=== PATIENT | female | born 1965 | race Caucasian/White ===

== ENCOUNTER 2022-02-25 11:53 | Day surgery (SDC) | payer BC, SELFPAY ==
[2022-02-25] MEDS: Tropicam./Phenyleph. (1/2.5%) 5 ML BTL OD ×3 (13:05→13:16)
[2022-02-25 13:06] VITALS: BP 125/76; PULSE 69; RESP 16; TEMP 37.1; O2SAT 98
--- NOTE | 2022-02-25 13:12 | W.ANESPRE ---
General Info Date of Service Date Performed: 02/25/22 Height: 5 ft 3 in Weight: 84.8 kg Body Mass Index (BMI): 33.1 Surgical Procedure: Operation Date: 02/25/22 13:40 Proposed Procedure Side Surgeon p Cataract Extraction with IOL Implant Right Rosendo Foster MD Meds Allergies and Home Medications Allergies Allergy/AdvReac Type Severity Reaction Status Date / Time cat dander Allergy Intermediate Verified 02/25/22 13:00 [place] Juice Allergy Uncoded 02/25/22 13:27 Strawerries Allergy Uncoded 02/25/22 13:27 Home Medication Medication Instructions Recorded epinephrine 0.3 mg/0.3 mL 0.3 mg IM Q5-15M PRN 02/22/22 injection, auto-injector furosemide 40 mg tablet 40 mg PO DAILY 02/22/22 insulin glargine U-300 conc 300 50 unit subcut BID 02/22/22 unit/mL (3 mL) subcutaneous pen (Toujeo Max U-300 SoloStar) insulin lispro 200 unit/mL (3 mL) See Rx Instructions .Route .COMPLEX 02/22/22 subcutaneous pen omeprazole 40 mg capsule,delayed 40 mg PO DAILY PRN 02/22/22 release Current Visit Medications: Current Medications Generic Name Dose Route Start Last Admin Trade Name Freq PRN Reason Stop Dose Admin Acetaminophen 1,000 mg 02/25/22 06:00 Acetaminophen 500 Mg Tab PO Q4H PRN PRN Miscellaneous Medication 0 ml 02/25/22 06:00 Prednisolone 1%, Moxifloxacin 0.5%, Nepafenac 0.1% 5ml Btl OD DIRECTED [facility] Miscellaneous Medication 0 ml 02/25/22 06:00 02/25/22 13:05 Tropicam./Phenyleph. (1/2.5%) 5 Ml Btl OD 1 drp DIRECTED [facility] Administration Tetracaine HCl 0 ml 02/25/22 06:00 Tetracaine 0.5% 4 Ml Btl OD DIRECTED [facility] Medical History Medical History Allergic rhinitis Anemia Cataract Chest pain Pt. 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 states this is no longer true Tympanosclerosis Medical History Comments:: titanium plate neck/throat from 2003 fall/trauma; broken neck Surgical History Surgical History History of bilateral tubal ligation History of colonoscopy History of hysterectomy History of laparoscopy History of surgery throat gadiver 2003 History of surgery Titanium plate in throat/neck Hx laparoscopic cholecystectomy Previous section Tobacco Smoking/Tobacco Use Status: Never Alcohol Alcohol Intake: never Substance Use Substance use: Never Substance use type: does not use Vital Signs and Lab Results Vital Signs Most Recent Vital Signs in EMR: Most Recent Vital Signs Temp Pulse Resp BP Pulse Ox 37.1 C 69 16 125/76 98 02/25/22 13:06 02/25/22 13:06 02/25/22 13:06 02/25/22 13:06 02/25/22 13:06 Lab Results Blood Type / Crossmatch: No Data to Display Complete Blood Count: No Data to Display Complete Metabolic Panel: No Data to Display Liver Function Panel: No Data to Display Coagulation Panel: No Data to Display Cardiac Panel: No Data to Display Arterial Blood Gas: No Data to Display Venous Blood Gas: No Data to Display Pancreas Panel: No Data to Display Thyroid Panel: No Data to Display Infectious Disease: No Data to Display Blood Cultures: No Data to Display Toxicology Panel: No Data to Display Anesthesia Assessment and Plan Anesthesia History Personal History: Delayed Emergence Family History: No Family History of Anesthesia Complications Exercise Tolerance Exercise Tolerance: Metabolic Equivalents>4 Pertinent Negatives Pertinent Negatives: No Major Cardiovascular Symptoms or Complaints, No Major Pulmonary Symptoms or Complaints and Other (GERD well controlled) Cardiac & Pulmonary Exam Cardiac Exam: Normal S1/S2 Heart Sounds Pulmonary Exam: Clear Bilateral Breath Sounds Implantable Cardiac Device Does patient have a Pacemaker or an ICD?: No Airway Exam Known Difficult Airway: No Mallampati Class: 3 Mouth Opening: Narrow (< 3cm) Thyromental Distance: Greater than 3 cm Neck Range of Motion: Full ROM Neck Circumference: Thick Teeth Condition: Normal Dentition ASA Classification ASA Score: ASA 3 Emergency Case?: No NPO Status NPO Status: NPO Clears >2 hours, Solids >8 hours Anesthesia Plan Resuscitation Status: Full Code Anesthesia Technique: MAC Anesthesia Airway Planned: Natural Airway Monitors Used: Standard Monitors
[2022-02-25 13:28] VITALS: BMI 33.1
[2022-02-25] MEDS: Balanced Salt Soln.-PLUS 500 ML BAG (13:52)
[2022-02-25] MEDS: Tetracaine 0.5% 4 ML BTL OD (13:52)
[2022-02-25] MEDS: Lidocaine 1% Pres-Free 5 ML VIAL (13:53)
[2022-02-25] MEDS: Lidocaine 2% Jelly 6 ML SYR (13:53)
[2022-02-25] MEDS: Duovisc Viscoelastic System EACH 1 EACH (13:55)
[2022-02-25] MEDS: Povidone-Iodine Ophth 30 ML BTL (13:55)
[2022-02-25 14:26] VITALS: BP 120/64; PULSE 69; RESP 16; TEMP 36.4; O2SAT 98
--- NOTE | 2022-02-25 14:27 | W.PM.DSUDISC ---
Discharge Plan Disposition Patient Disposition: HOME Condition: Good Discharge Details Attending Provider: Rosendo Foster Primary Care Provider: None,None Home Meds and New Rx's Prescriptions: No Action furosemide 40 mg Tablet 40 mg PO DAILY omeprazole 40 mg Capsule,Delayed Release(Dr/Ec) 40 mg PO DAILY PRN epinephrine 0.3 mg/0.3 mL Auto-Injector 0.3 mg IM Q5-15M PRN Rx Instructions: do not exceed 3 doses per episode insulin lispro 200 unit/mL (3 mL) Insulin Pen See Rx Instructions .ROUTE .COMPLEX Rx Instructions: sliding scale PRN Toujeo Max U-300 SoloStar 300 unit/mL (3 mL) Insulin Pen 50 unit SUBCUT BID Discharge Instructions Stand Alone Forms: Post-op Topical Cataract, Michael Garcia (DSU) Discharge Orders Discharge Orders: Discharge Order (Routine); Ordered 02/25/22 Ordered By: Rosendo Foster DS: Diagnosis Discharge Diagnosis (1) Nuclear sclerotic cataract of right eye: Status: Resolved (2) Posterior subcapsular age-related cataract, right eye: Status: Resolved
--- NOTE | 2022-02-25 14:28 | W.PM.OP ---
Date of service: 02/25/22 Time of Service: 14:28 Operative Note Operative Note DATE OF PROCEDURE: 02/25/22 PRE-OP DIAGNOSIS: Nuclear/posterior subcapsular cataract, right eye Poorly dilating pupil, right eye POST-OP DIAGNOSIS: same PROCEDURE: Cataract extraction using phacoemulsification with intraocular lens implant, right eye Pupillary expansion using pupil expansion device SURGEON: Rosendo Foster ANESTHESIA TYPE: Local By Surgeon and MAC Refer to Anesthesia Record ESTIMATED BLOOD LOSS: 0 PATHOLOGY: none sent COMPLICATIONS: None Patient was transported to: same day Patient's condition: stable Implants: Alexander & Alexander/MYKE Tecnis [id number] Indications: Progressive visual loss due to cataract, right eye Procedure Description: CATARACT SURGERY OPERATIVE REPORT PREOPERATIVE DIAGNOSIS: 1. Nuclear/posterior subcapsular cataract, right eye 2. Poorly dilating pupil, right eye POSTOPERATIVE DIAGNOSIS: Same OPERATION: 1. Cataract extraction using phacoemulsification with posterior chamber intraocular lens implant, right eye. 2. Pupillary expansion and iris stabilization using pupil expansion device. IOL Power: + 15.0 diopters IOL Serial Number: [id number] Optic Diameter: 6.0mm Haptic/Overall Diameter: 13.0mm PHACO INFO: Pietro [employer] Vision System with OZil and Active Fluidics Cumulative Dispersed Energy (CDE): 17.41 seconds SURGEON: Rosendo Foster MD, FARTUN ANESTHESIA: Monitored Anesthesia Care (MAC), with local sub-tenon's anesthetic infiltration COMPLICATIONS: None SPECIMENS: None INDICATIONS FOR PROCEDURE: The patient is a 57-year-old lady with history of diminished visual acuity in her right eye secondary to the development of nuclear/posterior subcapsular cataract. The option of cataract surgery was offered to the patient and she felt she was symptomatic enough that she wished to proceed. PROCEDURE: The correct surgical eye was identified and marked as the right eye and the pupil was dilated in the preoperative area using mydriatics and cycloplegics. The dilated pupil size was 4.0 mm. The patient elected to proceed without oral sedation. The patient was brought to the operating room where cardiopulmonary monitoring was instituted and surgical time-out was performed, confirming the correct operative eye and IOL power. Topical anesthesia was administered and ophthalmic povidone-iodine 5% was instilled into the conjunctival fornices. Lidocaine gel was applied to the cornea and the katelynn-ocular area was prepped with Betadine 10% solution and draped in the usual sterile fashion for intraocular surgery, including an aperture drape. A Tegaderm transparent film dressing was cut in half and used to cover the lashes and lid margins. Care was taken to sequester the lashes and lid margins under the Tegaderm dressing. A lid speculum was placed between the lids of the operative eye and the Pietro [employer] operating microscope was maneuvered into position. Daisy scissors were then used to make a conjunctival buttonhole approximately 6mm posterior to the limbus in the inferonasal quadrant. Blunt dissection was carried out to expose bare sclera, and a blunt-tipped sub-tenon?s anesthesia cannula was introduced and passed posteriorly along the globe where non-preserved plain lidocaine was injected into posterior sub-Tenon?s space. A sideport knife was used to make a paracentesis port inferotemporally. Intraocular phenylephrine/lidocaine was injected into the anterior chamber. The anterior chamber was filled with viscoelastic. A keratome knife was used to construct a 2-plane near-clear corneal tunnel extending 2.0mm into clear cornea superiortemporally. A 6.25 mm pupil expansion device was then inserted into the pupillary space and engaged with the Kuglen hook. A flap was raised on the anterior capsule and capsulorhexis forceps were used to complete a continuous curvilinear capsulorhexis of 5.0 mm. Balanced salt solution was then used to perform cortical cleaving hydrodissection and nuclear hydrodelineation until the lens could be freely rotated within the capsular bag. The lens nucleus was then disassembled and removed within the capsular bag and iris plane using phacoemulsification. Residual cortical material was removed using the I/A handpiece. The posterior capsule was carefully polished to remove as much residual lens epithelial cells as safely possible. The capsular bag was then inflated and the anterior chamber deepened with viscoelastic. The lens implant described above was inserted into the capsular bag using the MYKE [place] Injector. A Kuglen hook was used to dial the IOL into position. The pupil expansion device was then removed and the reverse order of its insertion. Residual viscoelastic was then removed first from posterior to the IOL, then from the anterior chamber using the I/A handpiece. The lens implant was noted to center nicely within the capsular bag. The incisions were stromally hydrated, and the anterior chamber was reformed using BSS. Then 0.5cc of moxifloxacin 1.0mg/ml were injected into the capsular bag and anterior chamber. The incisions were checked with a Weck spear and found to be secure. Several drops of ophthalmic povidone-iodine 5% were then applied to the eye followed by two drops of Imprimis combination prednisolone/moxifloxacin/nepafenac solution. The drapes were removed and a clear plastic protective eye shield was placed over the eye. The patient was then returned to Same Day Surgery in stable condition.
--- NOTE | 2022-02-25 14:45 | W.ANESPOSTOP ---
Postoperative Evaluation Date, Time and Location Date Performed: 02/25/22 Time Performed: 14:30 Patient Location: Day Surgery Unit Vital Signs Most Recent Imported Vital Signs: Most Recent Vital Signs Temp Pulse Resp BP Pulse Ox 36.4 C L 69 16 120/64 98 02/25/22 14:26 02/25/22 14:02/25/22 14:02/25/22 14:02/25/22 14:26 Pain Score Most Recent Pain Score: Most Recent Pain Score Pain Level 0 02/25/22 14:26 Assessment Mental Status: Awake (Alert & Oriented to Patient Baseline) Airway and Respiratory Function: Patent airway with normal (patient baseline) respiratory exam Cardiovascular Function: Hemodynamically Stable Hydration Status: Adequately Hydrated Nausea & Vomiting: No Nausea or Vomiting Pain: Pt. Denies Any Pain Peripheral Nerve Block: Patient did not receive a nerve block
== END 2022-02-25 15:00 | disposition home or self-care (01) ==
LOC: SUR 12:00
PROVIDERS: Visit Provider Ophthalmology
PROC: (CPT 66982; principal; 2022-02-25 13:30)
DX: H25.041 Posterior subcapsular polar age-related cataract, right eye (principal); E11.42 Type 2 diabetes mellitus with diabetic polyneuropathy; Z79.4 Long term (current) use of insulin; H57.03 Miosis
CPT/HCPCS: 66982; V2632

== ENCOUNTER 2022-03-11 06:10 | Day surgery (SDC) | payer BC, SELFPAY ==
[2022-03-11 06:25] VITALS: BP 115/64; PULSE 73; RESP 18; TEMP 36.6; O2SAT 97
[2022-03-11] MEDS: Tropicam./Phenyleph. (1/2.5%) 5 ML BTL OS ×3 (06:42→06:52)
--- NOTE | 2022-03-11 07:05 | ANES.PREOP_ITS ---
General Info Date of Service Date Performed: 03/11/22 Height: 5 ft 3 in Weight: 84.4 kg Body Mass Index (BMI): 32.9 Surgical Procedure: Operation Date: 03/11/22 07:40 Proposed Procedure Side Surgeon p Cataract Extraction with IOL Implant Left Rosendo Foster MD Meds Allergies and Home Medications Allergies Allergy/AdvReac Type Severity Reaction Status Date / Time cat dander Allergy Intermediate Verified 03/11/22 06:29 [place] Juice Allergy Uncoded 03/11/22 06:29 Strawerries Allergy Uncoded 03/11/22 06:29 Home Medication Medication Instructions Recorded epinephrine 0.3 mg/0.3 mL 0.3 mg IM Q5-15M PRN 02/22/22 injection, auto-injector furosemide 40 mg tablet 40 mg PO DAILY 02/22/22 insulin glargine U-300 conc 300 50 unit subcut BID 02/22/22 unit/mL (3 mL) subcutaneous pen (Toujeo Max U-300 SoloStar) insulin lispro 200 unit/mL (3 mL) See Rx Instructions .Route .COMPLEX 02/22/22 subcutaneous pen omeprazole 40 mg capsule,delayed 40 mg PO DAILY PRN 02/22/22 release insulin lispro 100 unit/mL subcut DAILY 03/11/22 subcutaneous pen Current Visit Medications: Current Medications Generic Name Dose Route Start Last Admin Trade Name Freq PRN Reason Stop Dose Admin Acetaminophen 1,000 mg 03/11/22 06:00 Acetaminophen 500 Mg Tab PO Q4H PRN PRN Miscellaneous Medication 0 ml 03/11/22 06:00 Prednisolone 1%, Moxifloxacin 0.5%, Nepafenac 0.1% 5ml Btl OS DIRECTED [facility] Miscellaneous Medication 0 ml 03/11/22 06:00 03/11/22 06:52 Tropicam./Phenyleph. (1/2.5%) 5 Ml Btl OS 1 drp DIRECTED [facility] Administration Tetracaine HCl 0 ml 03/11/22 06:00 Tetracaine 0.5% 4 Ml Btl OS DIRECTED [facility] PFSH Active Problems Active Problems: Problem Status Onset Code Posterior subcapsular age-related cataract of left eye H25.042 Nuclear sclerotic cataract of left eye H25.12 Posterior subcapsular age-related cataract, right eye H25.041 Nuclear sclerotic cataract of right eye H25.11 Medical History Medical History Allergic rhinitis Anemia Cataract Chest pain Pt. 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 states this is no longer true Tympanosclerosis Medical History Comments:: titanium plate neck/throat from 2003 fall/trauma; broken neck Surgical History Surgical History History of bilateral tubal ligation History of colonoscopy History of hysterectomy History of laparoscopy History of surgery throat gadiver 2003 History of surgery Titanium plate in throat/neck Hx laparoscopic cholecystectomy Previous section Tobacco Smoking/Tobacco Use Status: Never Alcohol Alcohol Intake: never Substance Use Substance use: Never Substance use type: does not use Vital Signs and Lab Results Vital Signs Most Recent Vital Signs in EMR: Most Recent Vital Signs Temp Pulse Resp BP Pulse Ox 36.6 C 73 18 115/64 97 03/11/22 06:25 03/11/22 06:25 03/11/22 06:25 03/11/22 06:25 03/11/22 06:25 Point of Care Results Point of Care Results: Finger Stick Blood Glucose 174 03/11/22 06:50 Lab Results Blood Type / Crossmatch: No Data to Display Complete Blood Count: No Data to Display Complete Metabolic Panel: No Data to Display Liver Function Panel: No Data to Display Coagulation Panel: No Data to Display Cardiac Panel: No Data to Display Arterial Blood Gas: No Data to Display Venous Blood Gas: No Data to Display Pancreas Panel: No Data to Display Thyroid Panel: No Data to Display Infectious Disease: No Data to Display Blood Cultures: No Data to Display Toxicology Panel: No Data to Display Anesthesia Assessment and Plan Anesthesia History Personal History: Delayed Emergence Family History: No Family History of Anesthesia Complications Exercise Tolerance Exercise Tolerance: Metabolic Equivalents>4 Pertinent Negatives Pertinent Negatives: No Symptoms of GERD Cardiac & Pulmonary Exam Cardiac Exam: Normal S1/S2 Heart Sounds Pulmonary Exam: Clear Bilateral Breath Sounds Implantable Cardiac Device Does patient have a Pacemaker or an ICD?: No Airway Exam Known Difficult Airway: No Mallampati Class: 3 Mouth Opening: Narrow (< 3cm) Thyromental Distance: Greater than 3 cm Neck Range of Motion: Full ROM Neck Circumference: Thick Teeth Condition: Normal Dentition ASA Classification ASA Score: ASA 3 Emergency Case?: No NPO Status NPO Status: NPO Clears >2 hours, Solids >8 hours Anesthesia Plan Resuscitation Status: Full Code Anesthesia Technique: MAC Anesthesia Airway Planned: Natural Airway Monitors Used: Standard Monitors
[2022-03-11 07:08] VITALS: BMI 32.9
[2022-03-11] MEDS: Lidocaine 2% Jelly 6 ML SYR (07:32)
[2022-03-11] MEDS: Balanced Salt Soln.-PLUS 500 ML BAG (07:32)
[2022-03-11] MEDS: Duovisc Viscoelastic System EACH 1 EACH (07:34)
[2022-03-11] MEDS: Povidone-Iodine Ophth 30 ML BTL (07:34)
[2022-03-11] MEDS: Tetracaine 0.5% 4 ML BTL OS (07:35)
--- NOTE | 2022-03-11 07:56 | W.PM.DSUDISC ---
Discharge Plan Disposition Patient Disposition: HOME Condition: Good Discharge Details Attending Provider: Rosendo Foster Primary Care Provider: None,None Home Meds and New Rx's Prescriptions: No Action insulin lispro [Humalog Pen] 100 unit/mL Insulin Pen SUBCUT DAILY furosemide 40 mg Tablet 40 mg PO DAILY omeprazole 40 mg Capsule,Delayed Release(Dr/Ec) 40 mg PO DAILY PRN epinephrine 0.3 mg/0.3 mL Auto-Injector 0.3 mg IM Q5-15M PRN Rx Instructions: do not exceed 3 doses per episode insulin lispro 200 unit/mL (3 mL) Insulin Pen See Rx Instructions .ROUTE .COMPLEX Rx Instructions: sliding scale PRN Toujeo Max U-300 SoloStar 300 unit/mL (3 mL) Insulin Pen 50 unit SUBCUT BID Discharge Instructions Stand Alone Forms: Post-op Topical Cataract, Press Ganey (DSU) Discharge Orders Discharge Orders: Discharge Order (Routine); Ordered 03/11/22 Ordered By: Rosendo Foster DS: Diagnosis Discharge Diagnosis (1) Posterior subcapsular age-related cataract of left eye: Status: Resolved (2) Nuclear sclerotic cataract of left eye: Status: Resolved
--- NOTE | 2022-03-11 07:56 | W.PM.OP ---
Date of service: 03/11/22 Time of Service: 07:57 Operative Note Operative Note DATE OF PROCEDURE: 03/11/22 PRE-OP DIAGNOSIS: Nuclear/posterior subcapsular cataract, left eye Poorly dilating pupil, left eye POST-OP DIAGNOSIS: same PROCEDURE: Cataract extraction by phacoemulsification with intraocular lens implantation, left eye, with pupillary expansion device SURGEON: Rosendo Foster ANESTHESIA TYPE: Local By Surgeon and MAC Refer to Anesthesia Record ESTIMATED BLOOD LOSS: 0 PATHOLOGY: none sent COMPLICATIONS: None Patient was transported to: same day Patient's condition: stable Implants: Alexander and Alexander / [employer] Tecnis [id number] Indications: Progressive decreased vision, left eye Poorly dilating pupil, left eye. Procedure Description: CATARACT SURGERY OPERATIVE REPORT PREOPERATIVE DIAGNOSIS: 1. Nuclear/posterior subcapsular cataract, left eye 2. Poorly dilating pupil, left eye POSTOPERATIVE DIAGNOSIS: Same OPERATION: 1. Cataract extraction using phacoemulsification with posterior chamber intraocular lens implant, left eye. 2. Pupillary dilation and iris stabilization using Malyugin Ring IOL; IOL Cold Rolling Machine Setter/Model: Alexander & Alexander / MYKE Tecnis [id number] IOL Power: + 15.5 diopters IOL Serial Number: [id number] Optic Diameter: 6.0 mm Haptic/Overall Diameter: 13.00 mm PHACO INFO: Pietro [place] Pr[employer]ion Vision System with OZil and Active Fluidics Cumulative Dispersed Energy (CDE): 3.83 seconds SURGEON: Rosendo Foster MD, FARTUN ANESTHESIA: Monitored Anesthesia Care (MAC), with local sub-tenon's anesthetic infiltration COMPLICATIONS: None SPECIMENS: None INDICATIONS FOR PROCEDURE: Patient is a 57-year-old lady with history of myopia who has developed significant bilateral nuclear/posterior subcapsular cataract, right eye worse than left. She has already undergone cataract surgery in the right eye and is doing well postoperatively. She now has symptomatic anisometropia and desires cataract surgery in the left eye to improve and maximize her vision. PROCEDURE: The correct surgical eye was identified and marked as the left eye and the pupil was dilated in the preoperative area using mydriatics, cycloplegics, and NSAIDS (except in aspirin allergic patients). The dilated pupil size was 4.0 mm. The patient elected to proceed without oral sedation. The patient was brought to the operating room where cardiopulmonary monitoring was instituted and surgical time-out was performed, confirming the correct operative eye and IOL power. Topical anesthesia was administered and ophthalmic povidone-iodine 5% was instilled into the conjunctival fornices. Lidocaine gel was applied to the cornea and the katelynn-ocular area was prepped with Betadine 10% solution and draped in the usual sterile fashion for intraocular surgery, including an aperture drape. A Tegaderm transparent film dressing was cut in half and used to cover the lashes and lid margins. Care was taken to sequester the lashes and lid margins under the Tegaderm dressing. A lid speculum was placed between the lids of the operative eye and the [employer] operating microscope was maneuvered into position. Daisy scissors were then used to make a conjunctival buttonhole approximately 6mm posterior to the limbus in the inferonasal quadrant. Blunt dissection was carried out to expose bare sclera, and a blunt-tipped sub-tenon?s anesthesia cannula was introduced and passed posteriorly along the globe where non-preserved plain lidocaine was injected into posterior sub-Tenon?s space. A sideport knife was used to make a paracentesis port superiorly/superiortemporally. Intraocular phenylephrine/lidocaine was injected into the anterior chamber. The anterior chamber was then filled with viscoelastic. A keratome knife was used to create a half-thickness groove at the limbus and then to construct a three-plane near-clear corneal tunnel extending 2.0mm into clear cornea at the temporal position. A 7.0 mm Malyugin Ring was then inserted into the pupillary space and engaged with the Kuglen hook. A flap was raised on the anterior capsule and capsulorhexis forceps were used to complete a continuous curvilinear capsulorhexis of 5.5 mm. Balanced salt solution was then used to perform cortical cleaving hydrodissection and nuclear hydrodelineation until the lens could be freely rotated within the capsular bag. The lens nucleus was then disassembled and removed within the capsular bag and iris plane using phacoemulsification. Residual cortical material was removed using the 45-degree angled silicone I/A tip with 0.3mm port. The posterior capsule was carefully polished to remove as much residual lens epithelial cells as safely possible. The capsular bag was then inflated and the anterior chamber deepened with viscoelastic. The lens implant described above was inserted into the capsular bag using the MYKE [place] Injector. A Kuglen hook was used to dial the IOL into position. The Malyugin Ring was removed in the reverse order of its insertion. Residual viscoelastic was then removed first from posterior to the IOL, then from the anterior chamber using the I/A handpiece. The lens implant was noted to center nicely within the capsular bag. The incisions were stromally hydrated, and the anterior chamber was reformed using BSS. Then 0.5cc of moxifloxacin 1.0mg/ml were injected into the capsular bag and anterior chamber. The incisions were checked with a Weck spear and found to be secure. Several drops of ophthalmic povidone-iodine 5% were then applied to the eye followed by two drops of Imprimis combination prednisolone/moxifloxacin/nepafenac solution. The drapes were removed and a clear plastic protective eye shield was placed over the eye. The patient was then returned to Same Day Surgery in stable condition.
--- NOTE | 2022-03-11 08:07 | W.ANESPOSTOP ---
Postoperative Evaluation Date, Time and Location Date Performed: 03/11/22 Time Performed: 08:00 Patient Location: Day Surgery Unit Vital Signs Most Recent Imported Vital Signs: Most Recent Vital Signs Temp Pulse Resp BP Pulse Ox 36.6 C 73 18 115/64 97 03/11/22 06:25 03/11/22 06:25 03/11/22 06:25 03/11/22 06:25 03/11/22 06:25 Most Recent Manually Entered Vital Signs: Adult Blood Pressure: 141/77 Heart Rate: 67 Respirations: 16 Oxygen Saturation (%): 98 Temperature (C): 36.4 C Pain Score (0-10 Scale): 0 Assessment Mental Status: Awake (Alert & Oriented to Patient Baseline) Airway and Respiratory Function: Patent airway with normal (patient baseline) respiratory exam Cardiovascular Function: Hemodynamically Stable Hydration Status: Adequately Hydrated Nausea & Vomiting: No Nausea or Vomiting Pain: Pt. Denies Any Pain Peripheral Nerve Block: Patient did not receive a nerve block
[2022-03-11 08:17] VITALS: BP 141/77; PULSE 67; RESP 16; TEMP 36.4; O2SAT 98
[2022-03-11 08:22] VITALS: BP 141/77; PULSE 67; RESP 16; TEMPC 36.4; O2SAT 98
== END 2022-03-11 08:25 | disposition home or self-care (01) ==
PROVIDERS: Visit Provider Ophthalmology
PROC: (CPT 66982; principal; 2022-03-11 07:30)
DX: H25.042 Posterior subcapsular polar age-related cataract, left eye (principal); H57.03 Miosis
CPT/HCPCS: 66982; V2632